=== PATIENT | female | born 1995 | race Caucasian/White ===

== ENCOUNTER 2017-05-27 12:34 | Emergency (ER) | payer OTHER ==
[~2017-05-27] VITALS: Ht 170.2 cm; Wt 85.0 kg
[~2017-05-27 12:34] MED LIST: AMOXICILLIN500 MG PO; MUCINEX600 MG OR; NYQUI2
[2017-05-27 14:06] LABS: URINE BILIRUBIN - DIPSTICK NEGATIVE (NEGATIVE); URINE BLOOD DIPSTICK NEGATIVE (NEGATIVE); URINE COLOR YELLOW; URINE GLUCOSE - DIPSTICK NEGATIVE (NEGATIVE); URINE KETONE TRACE mg/dL (NEGATIVE); URINE LEUK ESTERASE NEGATIVE (NEGATIVE); URINE NITRITE - DIPSTICK NEGATIVE (Negative); URINE PH 6.5 (4.5-8.0); URINE PROTEIN - DIPSTICK NEGATIVE (NEG-TRACE); URINE SPECIFIC GRAVITY 1.015; URINE UROBILINOGEN - DIPSTICK 0.2 E.U./dL (0.2)
[2017-05-27 14:07] LABS: URINE CLARITY CLEAR
[2017-05-27 14:30] VITALS: BP 142/84
== END 2017-05-27 14:30 | disposition home or self-care (01) | DRG 313 ==
LOC: ED 12:34
PROVIDERS: Emergency Medicine
DX: R07.89 Other chest pain (principal); F41.9 Anxiety disorder, unspecified

== ENCOUNTER 2022-07-21 04:54 | Emergency (ER) | payer OTHER ==
[~2022-07-21] VITALS: Ht 170.2 cm; Wt 113.0 kg
[2022-07-21] VITALS (17 sets, daily range): BP systolic 104–137; BP diastolic 56–87
[2022-07-21 05:27] LABS: BASO% 0.1 % (0-3); EOS% 0.6 % (0-8); HEMATOCRIT 44.9 % (37.0-47.0); HEMOGLOBIN 14.9 g/dl (12.0-16.0); IMMATURE GRANULOCYTES 0.9 % (0.0-5.0); LYMPH% 7.9 % (15-41); MEAN CELL VOLUME 83.5 fL CALC (80.0-100.0); MEAN CORPUSCULAR HGB 27.7 pG CALC (26.0-32.0); MEAN CORPUSCULAR HGB CONC 33.2 g/dL CAL (32.0-36.0); MONO% 5.2 % (2-13); NEUT# 15.61 thou/uL (2.00-7.15); NEUT% 85.3 % (42-76); RED BLOOD COUNT 5.38 mill/uL (4.20-5.60); RED CELL DISTRI WIDTH 12.9 % (11.5-15.5)
[2022-07-21 05:39] LABS: ALBUMIN 4.7 g/dL (3.2-5.0); ALKALINE PHOSPHATASE 103 u/l (38-126); ANION GAP 16 (6-22 (CALC)); BILIRUBIN, TOTAL 1.2 mg/dL (0.02-1.3); BUN 14 mg/dL (7-17); BUN/CREATININE RATIO 21 (12-20 (CALC)); CARBON DIOXIDE 21 mmol/l (22-30); CHLORIDE 104 mmol/l (95-108); CREATININE 0.7 mg/dL (0.5-1.0); GFR FOR AFR.AMER. > 60 ML/MIN (>=60 (CALC)); GFR OTHER RACES > 60 ML/MIN (>=60 (CALC)); LIPASE 43 u/l (23-300); POTASSIUM 3.8 mmol/l (3.5-5.1); SGOT/AST 27 u/l (14-36); SODIUM 138 mmol/l (137-146); TOTAL PROTEIN 7.8 g/dL (6.3-8.2)
[2022-07-21 08:24] LABS: URINE BILIRUBIN - DIPSTICK NEGATIVE (NEGATIVE); URINE BLOOD DIPSTICK NEGATIVE (NEGATIVE); URINE COLOR YELLOW; URINE GLUCOSE - DIPSTICK 500 mg/dL (NEGATIVE); URINE KETONE NEGATIVE (NEGATIVE); URINE LEUK ESTERASE NEGATIVE (NEGATIVE); URINE PROTEIN - DIPSTICK NEGATIVE (NEG-TRACE); URINE SPECIFIC GRAVITY 1.015; URINE UROBILINOGEN - DIPSTICK 0.2 E.U./dL (0.2)
[2022-07-21 08:26] LABS: URINE NITRITE - DIPSTICK NEGATIVE (Negative)
[2022-07-21] MEDS ORDERED: ONDANSETRON4 MG PO (08:45)
== END 2022-07-21 09:35 | disposition home or self-care (01) | DRG 312 ==
LOC: ED 04:54
PROVIDERS: Emergency Medicine
DX: R55 Syncope and collapse (principal); R11.2 Nausea with vomiting, unspecified; R19.7 Diarrhea, unspecified
CPT/HCPCS: S0164

== ENCOUNTER 2023-01-02 07:34 | Emergency (ER) | payer MEDICAID ==
[~2023-01-02] VITALS: Ht 170.2 cm; Wt 100.0 kg
[~2023-01-02 07:34] MED LIST changes: +ONDANSETRON4 MG PO
[2023-01-02 07:52] VITALS: BP 127/69
[2023-01-02] MEDS ORDERED: TRAMADOL HYDROC50 M1 PO ×2 (07:57→07:58)
[2023-01-02] MEDS ORDERED: PREDNISONE50 MG PO ×2 (07:57→07:58)
[2023-01-02 08:40] VITALS: BP 127/69
== END 2023-01-02 08:40 | disposition home or self-care (01) ==
LOC: ED 07:34
DX: M54.42 Lumbago with sciatica, left side (principal); F41.9 Anxiety disorder, unspecified; F17.200 Nicotine dependence, unspecified, uncomplicated

== ENCOUNTER 2023-11-15 10:24 | Emergency (ER) | payer OTHER ==
[~2023-11-15] VITALS: Ht 170.2 cm; Wt 104.3 kg
[~2023-11-15 10:24] MED LIST changes: +PREDNISONE50 MG PO; +TRAMADOL HYDROC50 M1 PO
[2023-11-15 10:30] VITALS: BP 140/87
[2023-11-15] MEDS ORDERED: AMOX/K CLAV875 M1 PO (10:36)
[2023-11-15 10:57] VITALS: BP 140/87
== END 2023-11-15 11:05 | disposition home or self-care (01) | DRG 605 ==
LOC: ED 10:24
DX: S61.451A Open bite of right hand, initial encounter (principal); W54.0XXA Bitten by dog, initial encounter; Y93.K9 Activity, other involving animal care; Y92.59 Other trade areas as the place of occurrence of the external cause; Y99.0 Civilian activity done for income or pay